=== PATIENT | female | born 1980 ===

== ENCOUNTER 2021-12-08 06:00 | Day surgery (SDC) | payer OTHER ==
[2021-12-08] MEDS ORDERED: PEPCID20 MG PO (08:17)
== END 2021-12-08 10:10 | disposition home or self-care (01) ==
LOC: AMB-ENDOS 06:00
PROVIDERS: ATTEND Surgery
DX: K29.00 Acute gastritis without bleeding (principal); Z20.822 Contact with and (suspected) exposure to COVID-19; K44.9 Diaphragmatic hernia without obstruction or gangrene; K31.7 Polyp of stomach and duodenum